=== PATIENT | male | born 2000 | race Caucasian/White ===

== ENCOUNTER 2024-02-05 05:02 | Emergency (ER) | payer OTHER, SELFPAY ==
[2024-02-05 05:03] VITALS: BP 121/77
--- NOTE | 2024-02-05 05:06 | ED.GENMED ---
History of Present Illness
General
Chief Complaint: Alcohol Problem
Source: patient
Exam Limitations: none
Time Seen by Provider: 02/05/24 05:05
History of Present Illness
History of Present Illness:
See MDM
Past History
Past History
ED Past Medical History: None
ED Past Surgical History: None
Social History
Tobacco: Non-smoker
Alcohol: Occasional
Phy Exam
Physical Exam
Physical Exam:
See MDM
Scores
Withdrawal Assessment of Alcohol
Withdrawal Assessment Completed?: Not applicable
Course
Orders/Labs/Results
Orders:
Orders
02/05/24 05:08
Ondansetron Orally Disint [Zofran Odt (Orally Disintegrating)] 4 mg PO NOW STA
02/05/24 05:09
Ondansetron Orally Disint [Zofran Odt (Orally Disintegrating)] 4 mg .ROUTE .STK-MED ONE
Vital Signs
Initial and Last Documented VS:
Initial Vital Signs
Temp Pulse Resp BP Pulse Ox
97.7 F 57 20 121/77 100
02/05/24 05:03 02/05/24 05:03 02/05/24 05:03 02/05/24 05:03 02/05/24 05:03
Last Documented Vital Signs
Temp Pulse Resp BP Pulse Ox
97.7 F 57 20 121/77 100
02/05/24 05:03 02/05/24 05:03 02/05/24 05:03 02/05/24 05:03 02/05/24 05:03
MDM/Problems Addressed
Differential Diagnosis Includes:
HPI and MDM Narrative:
23-year-old male presenting for evaluation of alcohol intoxication and vomiting. Patient states he had about 10 drinks last night. EMS, patient started to vomit at home. Because the vomit appeared dark, family called 911 to rule out upper GI
bleed. EMS indicating that they evaluated the vomit and it did not appear to be concerning for upper GI bleeding
Physical exam
General: Well appearing and non-toxic. Mildly intoxicated
HEENT: protecting airway
Neck: appears supple
CV: No evidence of cyanosis
Resp: No accessory muscle use
Abd: Non-distended. Soft and nontender
Extremities: No deformities
Neuro: alert
Psych: Normal affect
Skin: Intact
Problems Addressed including Acute and Chronic Conditions affecting care:
1. Nausea and vomiting
Acuity: acute
Prognosis: stable
Details: Likely related to current alcohol intoxication we will continue to monitor but no overt signs of acute upper GI bleed
Updates
5:45 AM father at bedside and he did bring the tower where the patient did vomit. The color is brown and there is no coffee grounds or evidence of bleeding. He states that the patient does not drink very often. Patient states he drank green tea
shots and ice tea mixed drinks. We discussed the color his vomit is likely related to what he ingested. Given no vomiting in the emergency department, doubt significant upper GI bleeding
Differential Diagnosis (but not limited to): Gastritis, alcohol intoxication, pancreatitis
Testing considered: Blood work
Drug therapy (if applicable): OTC meds, please see d/c instruction regarding Rx drugs
Amount and/or Complexity of Data Reviewed
Clinical info obtained from: Patient and father
External data reviewed: N/A
Labs I independently reviewed (but not limited to): N/A
Radiology: N/A
Pulse Ox: not hypoxic
EKG independently reviewed: N/A
Campaign Management Specialist: N/A
Critical Care: N/A
Risk of Complication:
Social Determinants of health: Good social support
Discussed with other providers: N/A
Escalation of Care includes Admit/Obs: After being observed in the Emergency Department, pt stable for discharge.
Occasional wrong word or 'sound a like' substitutions may have occurred due to the inherent limitations of voice recognition software. Read the chart carefully and recognize, using context, where substitutions have occurred.
*Critical Care Note
Total Time (30-74mins, 75-104mins- exclusive of procedures): Not Applicable
ED Attending Note
-
Portions of this chart may have been created with voice recognition software.� Occasional wrong word or��sound alike� substitutions may have occurred due to the inherent limitations of voice recognition software.
Discharge Plan
Departure
Patient Disposition: Home (Routine Discharge)
Date of Disposition: 02/05/24
Time of Disposition: 05:50
Patient with high blood pressure during this ER visit?: No
Discharge Problem:
Vomiting
Prescriptions:
New
ondansetron 4 mg Tablet,Disintegrating
4 mg PO BIDPRN PRN (Reason: nausea/vomiting) Qty: 10 0RF
No Action
acetaminophen [Tylenol Extra Strength] 500 mg tablet
1,000 mg PO Q6HPRN PRN (Reason: mild pain) Qty: 1 0RF
ibuprofen 200 mg tablet
400 - 600 mg PO Q6HPRN PRN (Reason: moderate pain) Qty: 1 0RF
tramadol 50 mg tablet
50 - 100 mg PO Q6HPRN PRN (Reason: severe pain/breakthrough pain) Qty: 10 0RF
polyethylene glycol 3350 [Miralax] 17 gram/dose powder
4 g PO DAILY PRN (Reason: Constipation) Qty: 119 0RF
Rx Instructions:
start a laxative such as MIRALAX on day 2 after surgery if no bowel movement yet as long as no nausea/vomiting and passing gas
Activity Restrictions/Additional Instructions:
Please return for any worsening symptoms.
You may return at any time if you have further concerns.
Please follow up with your doctor at the first available appointment, preferably this week.
Thank you for choosing [facility].
Interventions
Interventions:
*Risk Screen - Suicide Last Done: 02/05/24 05:03
*General Assessment Last Done: 02/05/24 05:03
*Neglect/Abuse Screening Last Done: 02/05/24 05:03
ED- Fall Risk Assessment Last Done: 02/05/24 05:11
*ED COVID-19 Vaccine History Last Done: 02/05/24 05:11
ED- Neurological Assessment Last Done: 02/05/24 05:11
ED-Psychological Assessment Last Done: 02/05/24 05:11
Discharge Date and Time
Print Language: BRAZILIAN
[2024-02-05 05:10] VITALS: BMI 25.2
[2024-02-05] MEDS: ZOFRAN ODT (ORALLY DISINTEGRATING) 4 MG PO (05:10)
[2024-02-05 06:00] VITALS: BP 108/60
== END 2024-02-05 06:32 | disposition home or self-care (01) ==
LOC: EMR 05:02
PROVIDERS: EMERGENCY PHYSICIAN Student in an Organized Health Care Education/Training Program; FAMILY PHYSICIAN Family Medicine
DX: R11.2 Nausea with vomiting, unspecified (principal)
CPT/HCPCS: 99283